=== PATIENT | male | born 1970 | race Caucasian/White ===

== ENCOUNTER 2018-02-19 09:53 | Emergency (ER) | payer OTHER ==
[~2018-02-19] VITALS: Ht 180.3 cm; Wt 72.1 kg
[2018-02-19 09:59] VITALS: BP 124/78; Ht 180.3 cm; Wt 72.1 kg
== END 2018-02-19 10:50 | disposition home or self-care (01) ==
LOC: ED 09:53
DX: J32.9 Chronic sinusitis, unspecified (principal); F17.210 Nicotine dependence, cigarettes, uncomplicated
CPT/HCPCS: J1885